=== PATIENT | male | born 1975 | race Caucasian/White ===

== ENCOUNTER 2019-04-15 23:34 | Inpatient (IN) | payer SELFPAY ==
[2019-04-16] MEDS ORDERED: Ketamine 50 MG/ML (10ML VIAL) ONE (00:31)
[2019-04-16] MEDS ORDERED: Morphine 4 MG/ML VIAL ONE (00:31)
[2019-04-16] MEDS ORDERED: Ondansetron PF 4 MG/2 ML Vial ONE (00:31)
[2019-04-16] MEDS ORDERED: Ketorolac Tromethamine 30 MG/ML VIAL ONE (00:41)
[2019-04-16 01:21] LABS: #Eosinphils 0.5 thou/uL (0.0-0.7); #Lymphocytes 2.6 thou/uL (1.20-3.40); #Monocytes 1.4 thou/uL (0.11-0.59); #Neutrophils 10.3 thou/uL (1.40-6.50); %Basophils 0.3 % (0.0-1.0); %Eosinophils 3.5 % (0.0-10.0); %Lymphocytes 17.4 % (21.0-51.0); %Monocytes 9.2 % (0.0-10.0); %Neutrophils 69.6 % (42.0-75.0); Hemoglobin 16.1 g/dL (14.0-18.0); Mean Corpuscular HGB CONC 33.9 g/dL (32.0-36.0); Mean Corpuscular Hemoglobin 30.5 pg (27.0-31.0); Mean Corpuscular Volume 89.9 fL (78.0-98.0); Mean Platelet Volume 9.5 fL (7.4-10.4); Platelet Count 230 thou/uL (130-400); RBC Distribution Width 12.5 % (11.5-14.5); Red Blood Cell (RBC) Count 5.27 mill/uL (4.70-6.10); White Blood Cell (WBC) Count 14.8 thou/uL (4.8-10.8)
[2019-04-16 01:28] LABS: INR-International Normal Ratio 0.9; PTT 23.4 SEC (22.9-36.1); Prothrombin Time 12.3 SEC (12.0-14.7)
[2019-04-16 01:37] LABS: Anion Gap 13 mmol/L (10-20); BUN (Urea Nitrogen) 18 mg/dL (8.9-20.6); Calc. Creatinine Clearance 0 mL/min (70-130); Calcium 9.9 mg/dL (7.8-10.44); Carbon Dioxide 24 mmol/L (22-29); Chloride 108 mmol/L (98-107); Estimated GFR-MDRD 83; Glucose 120 mg/dL (70-105); Potassium 3.9 mmol/L (3.5-5.1); Sodium 141 mmol/L (136-145)
[2019-04-16] MEDS ORDERED: Nicotine 21 MG PATCH TOP SCH (01:45)
[2019-04-16] MEDS ORDERED: Morphine 4 MG/ML VIAL SLOW IVP PRN (03:35)
[2019-04-16] MEDS ORDERED: Dextrose 5% in Water 1,000 ML IV PRN (03:35)
[2019-04-16] MEDS ORDERED: Ondansetron ODT 4 MG TAB PO PRN (03:35)
[2019-04-16] MEDS ORDERED: diphenhydrAMINE 25 MG CAP PO PRN (03:35)
[2019-04-16] MEDS ORDERED: Morphine 2 MG/ML SYRINGE SLOW IVP PRN (03:35)
[2019-04-16] MEDS ORDERED: Dextrose 50% Abboject 50 ML SYRINGE SLOW IVP PRN (03:35)
[2019-04-16] MEDS ORDERED: Ondansetron PF 4 MG/2 ML Vial IVP PRN (03:35)
[2019-04-16] MEDS ORDERED: Acetaminophen 1,000 MG in Premix Bag 1 BAG IVPB SCH (03:35)
[2019-04-16] MEDS ORDERED: Cyclobenzaprine 10 MG TAB PO PRN ×2 (03:35→23:19)
[2019-04-16] MEDS: Sodium Chloride 0.9% 1,000 ML IV SCH ×3 (03:55→21:33)
[2019-04-16 04:35] VITALS: BMI 33.2
[2019-04-16] MEDS: Ketorolac Tromethamine 30 MG/ML VIAL IVP SCH ×3 (05:34→19:39)
[2019-04-16] MEDS ORDERED: CEFAZOLIN 2 GM, Admixture Fee 1 EACH in Sodium Chloride 0.9% 100 ML IVPB SCH (07:45)
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
[2019-04-16] MEDS: Famotidine 20 MG TAB PO SCH ×2 (09:51→21:32)
[2019-04-16] MEDS ORDERED: Morphine 4 MG/ML VIAL SLOW IVP SCH (09:54)
[2019-04-16] MEDS: Acetaminophen 1,000 MG in Premix Bag 1 BAG IVPB SCH ×2 (13:30→19:39)
[2019-04-16] MEDS ORDERED: Midazolam HCl 2 mg/2 ml Vial ONE (14:58)
[2019-04-16] MEDS ORDERED: Fentanyl 100 MCG/2 ML VIAL ONE ×3 (14:58→22:28)
[2019-04-16] MEDS ORDERED: Dexamethasone 4 mg/ml Vial ONE (14:58)
[2019-04-16] MEDS ORDERED: ceFAZolin Sodium (SDC) 2 GM/100 ML BAG ONE (15:33)
[2019-04-16] MEDS ORDERED: diphenhydrAMINE 50 MG/ML VIAL ONE ×2 (15:38→18:06)
[2019-04-16] MEDS ORDERED: diphenhydrAMINE 25 MG CAP PO SCH (15:45)
[2019-04-16] MEDS ORDERED: diphenhydrAMINE 50 MG/ML VIAL IVP SCH (16:00)
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
[2019-04-16] MEDS ORDERED: Promethazine HCl 25 MG/ML VIAL IM/IV PRN (22:37)
[2019-04-16] MEDS ORDERED: Ondansetron HCl/PF 4 MG/2 ML Vial IVP PRN (22:37)
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
[2019-04-16] MEDS: Acetaminophen 500 MG TAB PO SCH (23:51)
[2019-04-16] MEDS: traMADol HCl 50 MG TAB PO SCH (23:51)
[2019-04-16] MEDS: CEFAZOLIN 2 GM, Admixture Fee 1 EACH in Sodium Chloride 0.9% 100 ML IVPB SCH (23:53)
[2019-04-17] MEDS ORDERED: CEFAZOLIN 2 GM in Premix Bag 1 BAG IVPB SCH (06:00)
[2019-04-17] MEDS ORDERED: Ibuprofen 800 MG TAB PO SCH (06:00)
[2019-04-17 06:04] VITALS: BP 144/78; TEMP 97.8
[2019-04-17] MEDS: traMADol HCl 50 MG TAB PO SCH (06:19)
[2019-04-17] MEDS: Acetaminophen 500 MG TAB PO SCH (06:20)
--- NOTE | 2019-04-17 07:47 | RAD ---
Exam: XR Forearm Lt 2 View STANDARD HISTORY: ORIF left radius COMPARISON: 04/15/2019 FINDINGS/IMPRESSION: 3 intraoperative fluoroscopic images of the distal forearm are submitted for interpretation. Images d emonstrate a volar plate and multiple screws transfixing the previously seen displaced and angulated fracture of the distal diaphysis left radius. There is improvement in alignment of the frac ture fragments. Correlation with intraoperative findings is recommended. Fluoroscopy: Total fluoroscopy time is 5.4 seconds with a total dose of 0.15 mGy.
[2019-04-17] MEDS: CEFAZOLIN 2 GM, Admixture Fee 1 EACH in Sodium Chloride 0.9% 100 ML IVPB SCH (09:03)
[2019-04-17] MEDS ORDERED: Gabapentin 100 MG CAP PO SCH ×3 (11:00→15:00)
== END 2019-04-17 12:30 | disposition home or self-care (01) | DRG 563 ==
LOC: ERS 23:34 → SURG A 04-16 00:52
PROVIDERS: ADMIT Specialist; ATTEND Specialist
DX: S52.372A Galeazzi's fracture of left radius, initial encounter for closed fracture (principal); Y93.55 Activity, bike riding; Y92.412 Parkway as the place of occurrence of the external cause; V88.8XXA Person injured in other specified noncollision transport accidents involving motor vehicle, nontraffic, initial encounter; L25.9 Unspecified contact dermatitis, unspecified cause; F17.210 Nicotine dependence, cigarettes, uncomplicated
CPT/HCPCS: 76000; 80048; 85025; 85610; 85730; G0390; J0131; J0690; J1100; J1200; J1885; J2250; J2270; J2405; J3010; J3490; Q0163